=== PATIENT | female | born 1960 | race Caucasian/White ===

== ENCOUNTER 2016-10-27 09:13 | Day surgery (SDC) | payer BC ==
[2016-10-24 10:45] LABS: HEMOGLOBIN 12.4 g/dL (12.0-16.0); MEAN CORPUS HGB CONC 34.8 g/dL (32.0-36.0); MEAN CORPUSCULAR HEMOGLOB 32.9 pg (26.0-34.0); MEAN PLATELET VOLUME 9.3 fL (9.2-13.0); RBC DISTRIBUTION WIDTH 14.7 % (12.0-16.0); RED CELL COUNT 3.77 10/6/uL (4.0-5.6)
[2016-10-24 10:49] LABS: HEMATOCRIT 35.6 % (36.0-48.0); MANUAL DIFF YES %; MEAN CORPUSCULAR VOLUME 94.4 fL (80-100); PLATELET COUNT 122 10/3/uL (150-400); WHITE BLOOD CELLS 1.7 10/3/uL (4.5-10.5)
[2016-10-24 11:03] LABS: A/G RATIO 1.8 (0.7-1.9); ALBUMIN 4.1 G/DL (3.5-5.0); ALKALINE PHOSPHATASE 71 U/L (45-117); BUN (BLOOD UREA NITROGEN) 15 MG/DL (6-23); CALCIUM, SERUM 8.8 MG/DL (8.5-10.4); CHLORIDE, SERUM 109 MMOL/L (96-112); CO2 (CARBON DIOXIDE) 27 MMOL/L (24-34); CREATININE 0.88 MG/DL (0.55-1.02); GFR AFRICAN AMERICAN 84 ML/MIN (>=60); GFR NON AFRICAN AMERICAN 72 ML/MIN (>=60); GLOBULIN 2.3 G/DL (2.5-4.1); GLUCOSE, SERUM 96 MG/DL (60-99); POTASSIUM, SERUM 4.5 MMOL/L (3.5-5.3); SGOT(AST) 21 U/L (5-40); SGPT(ALT) 28 U/L (5-65); SODIUM, SERUM 144 MMOL/L (135-148); TOTAL BILIRUBIN 0.6 MG/DL (0-1.2); TOTAL PROTEIN 6.4 G/DL (6.0-8.5)
[2016-10-24 12:18] LABS: BAND NEUTROPHILS 1 %; BASOPHILS 2 %; BASOPHILS ABSOLUTE (CALC) 0.03 10/3/uL (0.0-0.16); EOSINOPHILS 2 %; EOSINOPHILS ABSOLUTE (CALC) 0.03 10/3/uL (0.0-0.53); LYMPHOCYTES 31 %; LYMPHOCYTES ABSOLUTE (CALC) 0.53 10/3/uL (0.67-4.30); MONOCYTES 4 %; MONOCYTES ABSOLUTE (CALC) 0.07 10/3/uL (0.21-1.20); NEUTROPHILS ABSOLUTE (CALC) 1.04 10/3/uL (2.02-8.40); PLATELET ESTIMATE SLT DEC (ADEQUATE); SEGMENTED NEUTROPHIL (0) 60 %; TOTAL NUCLEATED CELLS 100
[2016-10-24 12:19] LABS: RBC MORPHOLOGY NORM (NORMAL)
--- NOTE | ~2016-10-27 | OP ---
Record Of Operation [facility] [address] [place]. [address] NAME: FRANCIS MOSES : 56 STATUS : [facility]#: [id number] AGE: 56 ADM/REG DATE : 10/27/16 MR#: [id number] REPORT SERV DATE: 10/27/16 DICTATED BY: BECKY VARGAS JR. DATE: 10/27/16 REPORT STATUS : Draft TRANSCRIBED BY: MODL DATE: 10/27/16 DATE OF PROCEDURE: REASON FOR SURGERY: This 56-year-old patient had presented with a very mass in her right breast with unknown positive lymph node in April of this past year. 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 She has had a complete response on PET scan, both with the lymph node resolution and bone metastasis resolution. The breast has a minimal activity in the area of previous concern. The initial tumor measured as much as 7 to 8 cm across and may have been as wide as 10 to 12 cm. It is a vague mass on its clinical exam, but has indeed resolved somewhat even though it is hormone favorable. The amount of resolution is unknown at this time. I am no longer able to see abnormal lymph nodes on ultrasound. Normally, metastatic breast cancer does not necessitate surgical intervention of the breast. However, the exception to this general rule is those with bone only metastasis that have resolution. The goal is to render her with no evidence of disease and hopefully can sustain a prolonged interval of clinical disease-free survival. Observation of the breast is also an option and the patient was encouraged to consider these options, but basically refuses and is demanding mastectomy. Also, her breasts are quite large and she is demanding opposite side mastectomy. She has been informed this has no influence on survival or recurrence, but she prefers going ahead due to the large discrepancy in the outcome with one large breast remaining. The lymph nodes situation is such that a low threshold will be utilized for axillary dissection, although she may well need postoperative radiation therapy. The role of radiation therapy is yet to be decided and certainly is debated on the patient's with a good response, but since we are looking to have a prolonged disease-free survival, I would probably encourage that radiation therapy be considered. Radiation therapy consult will be obtained. The patient is already on aromatase inhibitors. PREOPERATIVE DIAGNOSIS: Carcinoma, right breast. POSTOPERATIVE DIAGNOSIS: Carcinoma, right breast. SURGERY PERFORMED: [place] node localization followed by bilateral mastectomy and axillary dissection on the right. SURGEON: Becky Vargas M.D. DESCRIPTION OF PROCEDURE: The patient was initially injected in the [facility]. Non-migration was evident. The patient was taken to the operating room and under general anesthesia, she was prepped and draped in a supine position in the usual sterile fashion. Both breast mounds were marked and oblique elliptical incisions were outlined. Record Of Operation [address] [address] NAME: FRANCIS MOSES : 56 STATUS : [facility] PAT#: [id number] AGE: 56 ADM/REG DATE : 10/27/16 MR#: [id number] REPORT SERV DATE: 10/27/16 DICTATED BY: BECKY VARGAS JR. DATE: 10/27/16 REPORT STATUS : Draft TRANSCRIBED BY: MODL DATE: 10/27/16 The right breast was approached. The incision was made and flaps elevated in each direction to incorporate the entire breast mound. The latissimus was cleared laterally. The dissection was then carried up to the low axilla. The breast was then removed from above downward incorporating the fascia. Once the breast was left suspended by the axillary tail, the gamma probe was used to examine the axilla. I could not find any migration. As she is known to have had previous nicole involvement on evaluation, the axillary dissection is necessary, although this is done in light of probable need of postmastectomy radiation therapy and also with the understanding of the presence of systemic disease. With adequate retraction, the level 2 and then level 1 nodes were dissected from medial to lateral from off the axillary vein. Bridging lymphatic and venous tissue were clipped and divided. The long thoracic and thoracodorsal bundles were preserved. Once the latissimus was encountered laterally, the dissection was carried out inferiorly off the chest wall and the specimen removed and oriented for pathology. The wound was irrigated and hemostasis obtained. Two suction drains were inserted and secured to the skin with Prolene. The wound was closed with two layers of Monocryl. Attention was then turned to the left breast. A similar procedure of incision and flap elevation was performed with clearing of the latissimus. The breast was again removed from above downward incorporating the fascia. Final dissection was carried out into the low axilla where a few lymph nodes were incidentally incorporated into the axillary tail dissection. The specimen was removed and oriented for pathology. The wound was irrigated and hemostasis obtained. Drainage and closure are as previously described. The patient tolerated the procedure well without complications. ESTIMATED BLOOD LOSS: 150 mL. SPONGE COUNT: Correct. /HERACLIO Becky Vargas Jr., M.D. / [id number] CC: Jessa Buck Jr., M.D. Stephen Depasquale, M.D. Darrell Johnson, M.D.
[~2016-10-27 09:13] MED LIST: CELLCEPT5 PO; CENTRUM PO; CLARIT10 PO; EFFEX37.5 PO; EZFE 200200 MG PO; LIPITOR10 PO; OS500+D PO; PRIN2.5 PO; PROGRAF1 PO; RED YEAS1 PO; VITD PO; X5 PO
== END 2016-10-27 21:10 | disposition home or self-care (01) ==
LOC: SDC 09:13
PROVIDERS: Surgery Surgical Oncology
PROC: 07B50ZX Excision of Right Axillary Lymphatic, Open Approach, Diagnostic (ICD-10-PCS; 2016-10-27)
PROC: 0HTV0ZZ Resection of Bilateral Breast, Open Approach (ICD-10-PCS; principal; 2016-10-27 13:15)
DX: C50.911 Malignant neoplasm of unspecified site of right female breast (principal); I10 Essential (primary) hypertension; E78.00 Pure hypercholesterolemia, unspecified; M10.9 Gout, unspecified; F41.9 Anxiety disorder, unspecified; Z94.0 Kidney transplant status
CPT/HCPCS: 71020; 78195; 80053; 85025; 88307; 88309; 88342; 93005; A9270-GY; A9541; J0690; J2175; J2250; J2405; J3010